=== PATIENT | female | born 1960 | race Caucasian/White ===

== ENCOUNTER → 2016-08-11 | Outpatient (CLI) | payer OTHER ==
[~2016-08-11] MED LIST: ALPRAZOLAM 0.50.5 M1 PO; ANASPAZ0.125 MG SL; ASACOL400 MG PO; BACTRIM DS TAB1 EACH PO; CEFDINIR300 MG PO; COLACE100 MG PO; DEXILANT60 MG PO; DIPHENOXYLATE/A1 TA1 PO; DURAGESIC1 EAC1 TD; EFFEXOR100 MG PO; EFFEXOR25 MG PO; ESTRACE0.5 MG PO; ESTRACE1 MG PO; FENTANYL 1100 MCG/HR TP; FENTANYL PATCH75 MCG TRANSDERM; FLAGYL500 MG PO; HYDROCODONE-AP1 EAC6 PO; HYOSCYAMINE0.125 MG PO; IRON325 PO; MACROBID 100 M100 M1 PO; ONDANSETRON HCL4 M2 PO; OXYCODONE-APAP1 EAC7 PO; PREDNISONE 10 M10 MG PO; PREDNISONE50 MG PO; PREVACID15 MG PO; PROTONIX40 M1 PO; PROVERA2.5 MG PO; [UNRECOGNIZED DRUG - REMARK]
== END ==
LOC: NUC 07:27
DX: M81.8 Other osteoporosis without current pathological fracture (principal); N91.2 Amenorrhea, unspecified

== ENCOUNTER 2018-05-08 18:28 | Inpatient (IN) | payer OTHER ==
[~2018-05-08] VITALS: Ht 170.2 cm; Wt 63.5 kg
[2018-05-08 18:52] VITALS: BP 116/77
[2018-05-08 19:32] LABS: HEMATOCRIT 31.6 % (37.0-47.0); HEMOGLOBIN 10.7 gm/dL (12.0-15.0); MCH 29.8 pg (26.0-34.0); MCHC 33.9 g/dL (28.0-37.0); RBC 3.58 mil/uL (4.20-5.00); RDW 13.1 % (10.5-14.5); WBC 6.2 thou/uL (4.0-11.0)
[2018-05-08 19:35] LABS: ANION GAP 10 mmol/L (7-16); BUN 25 mg/dL (7-18); CALCIUM 8.5 mg/dL (8.5-10.1); CHLORIDE 100 mmol/L (98-107); CO2 27 mmol/L (21-32); CREATININE 0.9 mg/dL (0.6-1.0); GLUCOSE 105 mg/dL (74-106); POTASSIUM 3.7 mmol/L (3.5-5.1); SODIUM 137 mmol/L (136-145)
[2018-05-08 19:43] LABS: ALBUMIN 2.7 g/dL (3.4-5.0); LIPASE 243 U/L (73-393); SGOT 26 U/L (15-37); SGPT 32 U/L (30-65); TOTAL BILIRUBIN 0.4 mg/dL (<0.1-1.0); TOTAL PROTEIN 7.2 g/dL (6.4-8.2); TROPONIN-I <0.06 ng/mL (<0.06)
[2018-05-08 21:10] LABS: URINE BILIRUBIN NEGATIVE (Negative); URINE BLOOD NEGATIVE (Negative); URINE CLARITY CLEAR; URINE COLOR YELLOW; URINE GLUCOSE-RANDOM* NEGATIVE (Negative); URINE KETONES NEGATIVE (Negative); URINE LEUKOCYTES-REFLEX NEGATIVE (Negative); URINE NITRITE-REFLEX NEGATIVE (Negative); URINE PROTEIN (DIPSTICK) NEGATIVE (Negative); URINE SPECIFIC GRAVITY 1.025 (1.005-1.035)
--- NOTE | 2018-05-08 22:00 | NUR ---
PT OFF THE UNIT TO CT SCAN.
[2018-05-08 23:11] LABS: INR 1.1; PROTIME 11.1 Seconds (9.3-11.4)
[2018-05-08 23:14] VITALS: BP 136/86
[2018-05-08] MEDS ORDERED: TYLENOL EXTRA500 MG PO (23:20)
[2018-05-08] MEDS ORDERED: LORAZEPAM 1 MG T1 M1 PO (23:53)
[2018-05-08] MEDS ORDERED: MS CONTIN15 MG PO ×3 (23:54→23:58)
[2018-05-08] MEDS ORDERED: ZYRTEC10 M5 PO (23:56)
[2018-05-08 23:59] VITALS: BP 120/91
[2018-05-09] VITALS (9 sets, daily range): BP systolic 98–121; BP diastolic 54–91
--- NOTE | 2018-05-09 05:05 | NUR ---
PT WAS ADMITTED TO THE UNIT FORM THE ER AT APPROX 0030 IN A FAIR CONDITION.ADMISSION HX,EDUCATION AND ASSESSMENT COMPLETED.PT HAS A R CHEST PICC THAT HAS NOT BEEN ACCESSED SINCE ADMISSION, LAC PUT IN THE ER.PT CONT WITH IVF AND IV ABX ORDERED.NEW ORDERS NOTED FROM DR SOUSA PER PT'S REQUEST SEE EMAR.PT NPO AT THIS TIME.MID ABD INCISION NOTED,RED AROUND THE INCISION SITE, WARM TO TOUCH.PT STATED THAT SHE GETS TPN WHILE AT HOME.PT RESTING ON HER BED AT THIS TIME.CALL LIGHT WITHIN REACH.
--- NOTE | 2018-05-09 16:12 | NUR ---
ASSESSMENT-PT LIVES IN A SPLIT LEVEL HOME WITH HER . PRIOR TO ADMISSION PT WAS INDEPENDENT OF ADLS AND AMBULATION. ABLE TO ASSIST AT HOME. PT SAYS SHE HAS NOT DRIVEN SINCE HER SURGERY WAS DONE. PT SAYS SHE HAS MEDICARE PART A, CARD COPIED AND FAXED TO [facility]. FOLLOWING TO ASSIST WITH ANY DC NEEDS. PT HAD AN ABD DRAIN PLACED TODAY.
--- NOTE | 2018-05-09 16:33 | NUR ---
WOUND CONSULT: PT. WAS SEEN TODAY BY DR. HOWARD AND MYSELF. PT. HAS A CLOSED [facility]. CT SHOWED A FLUID COLLECTED AND PT. WENT TO IR TODAY AND A JUAN DRAIN WAS PLACED. PT. REPORTS THAT SHE IS MORE COMFORTABLE SINCE PLACEMENT OF DRAIN. RECOMMENDATIONS: WILL RE-EVALUATE ABDOMEN TOMORROW FOR EFFECTIVNESS OF JUAN DRAIN. PT. AND STAFF NURSE WERE INSTRUCTED ON PLAN OF CARE.
--- NOTE | 2018-05-09 16:59 | EKG ---
[address] [place] [address] ELECTROCARDIOGRAM REPORT Name: MIRI MONTESDY Zachary Room #: 426-P [facility] IN M.R.#: [id number] ������������������ Admission: 05/08/18 ������������������ Attend Phys: Hitesh Hylton MD Discharge: ������������������ Date of : 56 Report #: [id number] ����������������������������������������������������������������� [id number] THIS REPORT FOR: //name// [facility] ED Test Date: 2018-05-08 Test Time: 19:41:59 Pat Name: INOCENCIO MONTES Department: Room: 42 Gender: F Manager Engine: TOMASA : 1960 Requested By: Precious Rodriguez Order Number: [id number] MD: Bassam Erickson Measurements Intervals [place] Rate: 96 P: 31 CO: 142 QRS: 16 QRSD: 103 T: 35 QT: 339 QTc: 429 Interpretive Statements Sinus rhythm Normal tracing Compared to ECG 10/04/2007 09:03:48 Sinus tachycardia no longer present Electronically Signed On 05-09-2018 16:59:46 CDT by Bassam Erickson [email or web address] ��������������������������������������������� <ELECTRONICALLY SIGNED> ���������������������������������������� By: Bassam Erickson MD, [facility] ��������������������������������������������� 05/09/18 1659 40 40 Bassam Erickson MD, FAC /EPI
--- NOTE | 2018-05-09 17:13 | NUR ---
ASSUMED CARE AT 0700, SHIFT ASSESSMENT DONE, NPO SINCE MIDNIGHT FOR ABSCESS DRAINAGE. WENT DOWN FOR IR GUIDED DRAIN PLACEMENT AT 1030. CAME BACK WITH A JUAN DRAIN ON THE RIGHT LOWER ABDOMEN, PRODUCING SEROSANGUINOUS DRAINAGE. REPORTED PAIN, PRN PAIN MEDS GIVEN. GETTING IV ANTIBITOICS. PATIENT HAS A SINGLE LUMEN CENTRAL LINE IN HER RIGHT CHEST, NO DRESSING OR MEDICATED PATCH ON IT. INTERVETION FOR CENTRAL LINE ADDED AND IV KIMBERLEY KUHN NOTIFIED. WILL CONTINUE TO ASSESS AND ASSIST WITH ADLs NEEDED.
--- NOTE | 2018-05-10 06:41 | NUR ---
PT'S BROUGHT HER TPN FROM HOME,DR SOUSA APPROVED OF IT, SENT DOWN TO PHARMACY FOR VERIFICATION.PT NOT ABLE START TPN BECAUSE THE EXTENSION CORD THEY USE AT HOME WAS MISSING.JUAN DRAIN STILL INTACT,HAD 40CC SEROSANGUINEOUS DRAINAGE OUT.IVF AND IV ABX ADMINISTERED.PT UP ADLIB TO THE BR.PT ABLE TO MAKE HER NEEDS KNOWN.CALL LIGHT WITHIN REACH.
--- NOTE | 2018-05-10 15:20 | HC ---
[facility] [place] [address] CONSULTATION Name: INOCENCIO MONTES Zachary Room #: 426-P ADM IN M.R.#: [id number] Admission: 05/08/18 ������������������ Attend Phys: Hitesh Hylton MD Discharge: ������������������ Date of : 56 Report #: [id number] THIS REPORT FOR: //name// CC: Nabil Hylton DATE OF SERVICE: 05/09/2018 INFECTIOUS DISEASES CONSULTATION REASON FOR CONSULTATION: I was asked to evaluate concerning surgical site infection. HISTORY OF PRESENT ILLNESS: The patient is a 57-year-old with recurrent small bowel obstruction and essential short bowel syndrome, on TPN since November. Was initially seen at [facility]. Transferred to care at [facility] for surgical intervention where she underwent laparotomy with resection of small bowel obstruction and repair of ventral hernia, this was completed on 04/21/2018. She was discharged on 04/29/2018. She has had abdominal distention. She has had moderate amount of erythema to her abdominal incision. On 05/08/2018, she developed fever over 100.5 degrees associated with some sweats. She has had persistent abdominal tenderness. Because of this, she was admitted to the Emergency Room where a CAT scan showed fluid collection in the abdominal wall. A drain was placed today with bloody fluid aspirated. She remains on TPN via right upper extremity tunneled catheter. Reports some improvement in her abdominal discomfort following drain placement. She has had no nausea or vomiting. There has been no diarrhea. She denies any dysuria, frequency, back or flank pain. No cough or sputum production. No pleuritic chest pain. REVIEW OF SYSTEMS: A 10-point review of systems is negative other than what is described above. ALLERGIES: CODEINE AND ZOLOFT. MEDICATIONS: As noted on her APR, which were reviewed, now on Zosyn and vancomycin. PAST MEDICAL HISTORY: Multiple small bowel obstructions, D and C, bunionectomy, both feet; vein stripping, left leg; rectal fissure repair, tonsillectomy, C. difficile colitis in 2007. FAMILY HISTORY: Noncontributory. SOCIAL HISTORY: Past smoker, no significant alcohol intake, no HIV risks. [facility] [address] [place] [address] CONSULTATION Name: INOCENCIO MONTES Room #: 426-[facility] IN M.R.#: [id number] Admission: 05/08/18 ������������������ Attend Phys: Hitesh Hylton MD Discharge: ������������������ Date of : 56 Report #: [id number] Lives at home with her , does not work outside the home. PHYSICAL EXAMINATION: VITAL SIGNS: Afebrile and hemodynamically stable. GENERAL: Alert and cooperative and pleasant, in no acute distress. HEENT: Eyes without scleral icterus. Mouth without mucositis. LUNGS: Clear. HEART: Regular without murmur, gallop or rub. Right chest tunneled catheter was unremarkable. ABDOMEN: Midline incision with surrounding erythema, induration. Right lower abdominal drain in place with bloody fluid in the bulb. No CVA tenderness. EXTREMITIES: Without cyanosis, clubbing or edema. NEUROLOGIC: Cranial nerves intact. Strength in upper and lower extremities was normal. Sensation in upper and lower extremities was normal. Mood normal. LABORATORY STUDIES: Reviewed. Microbiology reports reviewed. CT scan reviewed. IMPRESSION: 1. A 57-year-old, postoperative day #18 from laparotomy, small bowel resection and ventral hernia repair, now with surgical site infection of the abdominal wall. Would be concerned about involvement of the mesh. Unclear as to if this is a biologic mesh or not. Will need coverage for nosocomial organisms. 2. Small bowel resection with essential short bowel syndrome, the patient states has improved following this surgery and anticipates coming off TPN. 3. Malnutrition. RECOMMENDATION: We will continue broad antibiotic coverage pending culture results from both blood and abdominal wall fluid collection. Ultimately, the patient will return to [place] for followup surgical opinion. ��������������������������������������������� <ELECTRONICALLY SIGNED> ���������������������������������������� By: Nabil Hoffman MD ��������������������������������������������� 05/10/18 1520 1528 [id number] Nabil Hoffman MD /nt
--- NOTE | 2018-05-10 15:50 | NUR ---
PATIENT REPORTED MORPHINE 2 MG NOT CONTROLLING PAIN, DR SOUSA INFORMED. ORDER RECEIVED FOR 4MG Q2H PRN. WILL CONTINUE TO ASSESS PAIN AND INTERVENE NEEDED.
--- NOTE | 2018-05-10 16:40 | NUR ---
WOUND FOLLOW UP: PT. WAS SEEN TODAY BY DR. HOWARD AND MYSELF. PT. JAROD IS RESPONDING WELL TO THE CURRENT JUAN DRAIN. BUT, PT. IS COMPLAING OF A GREAT DEAL OF PAIN AT THIS TIME. STAFF NURSE WAS TALKED TO ABOUT THE PT. PAIN. RECOMMENDATIONS: CONTINUE WITH CURRENT PLAN OF CARE. PT. AND STAFF NURSE WERE INSTRUCTED ON PLAN OF CARE.
[2018-05-10 16:56] VITALS: BP 98/56
[2018-05-10 20:00] VITALS: BP 107/64
--- NOTE | 2018-05-11 04:07 | NUR ---
ASSUMED PT CARE 1899. PT ALERT AND ORIENTED. VSS. PTDENIES N/V AT THIS TIME. REPORTS PAIN, WELL MANAGED WITH MEDICATION, SEE EMAR. IV DRESSING C/D/I, NO SIGNS OF INFILTRATION. PT CALL LIGHT AND PERSONAL BELONINGS WITHIN REACH. WILL CONTINUE POC UNTIL EOS.
[2018-05-11 05:00] VITALS: BP 99/54
[2018-05-11 06:20] LABS: CREATININE 0.8 mg/dL (0.6-1.0); MAGNESIUM 1.9 mg/dL (1.8-2.4); PHOSPHORUS 2.7 mg/dL (2.5-4.9); POTASSIUM 3.6 mmol/L (3.5-5.1); TOTAL BILIRUBIN 0.3 mg/dL (<0.1-1.0); TOTAL PROTEIN 5.7 g/dL (6.4-8.2)
[2018-05-11 07:56] VITALS: BP 98/59
--- NOTE | 2018-05-11 16:24 | NUR ---
S/W PT AND HER IN THE ROOM AND SHE TELLS ME HER HH RN NITESH WAS ASKING IF WE COULD FAX PT'S LABS TO HER. LEFT MESSAGE FOR NITESH [phone] TO CALL ME. NEED TO VERIFY FAX NUMBER FOR NITESH [phone] BEFORE I CAN FAX ANY INFO. CASE DISCUSSED WITH DR Cora BUCKLEY AND HE SAYS PT MAY NEED IV ABX. LEFT THIS MESSAGE WITH NITESH ALSO.
--- NOTE | 2018-05-11 16:58 | NUR ---
S/W NITESH FROM [facility] AND VERIFIED THE FAX NUMBER AND THEY WOULD BE ABLE TO SUPPLY IV ZOSYN FOR PT WELL. 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 THEY CAN PROVIDE IV ABX & HANDLE TEACHING FOR IV STUFF ONLY. WILL NOT BE ABLE TO DO ANYTHING WITH PT'S DRAIN. PT/ SHOULD BE ABLE TO BE TAUGHT HOW TO MANAGE DRAIN AT HOME.
[2018-05-11 17:06] VITALS: BP 119/67
[2018-05-11 17:33] VITALS: BP 119/67
[2018-05-11 19:10] VITALS: BP 115/69
--- NOTE | 2018-05-11 19:43 | NUR ---
DISCHARGE ORDERS RECEIVED FROM . DR. BUCKLEY ORDERED IV ANTIBIOTIC TREATMENT FOR ONE WEEK. SW HAS SET FAXED INFO TO [facility]. CONSENT WAS SIGNED FOR PICC, PIV IN R FA WAS REMOVED BY VASC. TEAM. PT WILL BE SENT HOME WITH JUAN DRAIN.
--- NOTE | 2018-05-11 23:14 | NUR ---
LATE ENTRY, VASCULAR ACCESS CONSULTED FOR A PICC FOR HOME ABX, PT HAS A RT CHEST TUNNELED CL FOR TPN AT [facility]. RN CONTACTED DR BUCKLEY TO CONFIRM THAT ANOTHER CL ACCESS WAS DESIRED FOR THIS PT. HE CONFIRMED HE WANTED A PICC. PT CONSENTED AFTER DISCUSSION OF RISKS AND BENEFITS AND LINE WAS PLACED. PLEASE SEE INSERTION NI FOR DETAILS
[2018-05-12 09:33] VITALS: BP 119/67
--- NOTE | 2018-05-12 10:18 | HC ---
[facility] [place] [address] CONSULTATION Name: INOCENCIO MONTES Room #: 426-P [facility] IN M.R.#: [id number] Admission: 05/08/18 ������������������ Attend Phys: Hitesh Hylton MD Discharge: 05/11/18 ������������������ Date of : 56 Report #: [id number] THIS REPORT FOR: //name// CC: Nabil Hylton DATE OF SERVICE: 05/09/2018 CHIEF COMPLAINT: Hematoma to abdominal wall. HISTORY OF PRESENT ILLNESS: This is a 57-year-old white female patient, currently on TPN, who presented to the Emergency Department Room with fever. She has undergone exploratory laparotomy for small bowel obstruction on 04/21/2018 in [place], [place]. She was noted to have swelling and pain over the abdominal incision line and was admitted for further evaluation and treatment. She has been seen by interventional radiology and percutaneous drain has been placed. There is still some redness and pain. There are no reported open wounds at this time. ALLERGIES: CODEINE AND ZOLOFT. CURRENT MEDICATIONS: Include vancomycin, fentanyl, midazolam, loratadine, Zosyn, vancomycin, morphine. PAST MEDICAL HISTORY: Positive for multiple abdominal surgeries for small bowel obstructions, previous bunion surgery, vein stripping on her left leg. FAMILY HISTORY: Noncontributory. SOCIAL HISTORY: Negative for current alcohol or tobacco use. She is , accompanied by her . REVIEW OF SYSTEMS: CONSTITUTIONAL: The patient does complain of mild fever and chills. Denies recent weight loss. NEUROLOGICAL: The patient denies focal weakness, numbness or tingling. EYES: The patient denies visual changes, redness or drainage. ENT: The patient denies earache, nasal drainage or sore throat. CARDIOVASCULAR: The patient denies chest pain, palpitations or diaphoresis. PULMONARY: The patient denies cough or shortness of breath. GASTROINTESTINAL: The patient complains of abdominal discomfort, some mild nausea. Denies vomiting or diarrhea. ORTHOPEDIC: The patient denies pain or swelling in the extremities. Other systems in a 14-point review of systems are negative. [address] [address] CONSULTATION Name: INOCENCIO MONTES Room #: 426-P [facility] IN ..#: [id number] Admission: 05/08/18 ������������������ Attend Phys: Hitesh Hylton MD Discharge: 05/11/18 ������������������ Date of : 56 Report #: [id number] PHYSICAL EXAMINATION: VITAL SIGNS: At this time include pulse rate 94, respiratory rate 16, blood pressure 107/65, temperature 36.3. GENERAL: This is a chronically ill-appearing female patient who appears to be in minimal distress. HEAD: Normocephalic. Nose and throat clear. NECK: Supple. LUNGS: Clear. ABDOMEN: Soft. Bowel sounds are present. There is tenderness, swelling and mild erythema and ecchymosis to the midline. A midline surgical incision line is noted to be intact with no external drainage. There is a drain to the right of the midline. NEUROLOGIC: The patient is alert and oriented and appropriate. LABORATORY DATA: Sodium 137, potassium 3.7, chloride 100, CO2 of 27, BUN 25, creatinine 0.9, glucose of 105. Lactic acid 0.9. Albumin is low at 2.7. INR is 1.1. White blood cell count 6.2 with a hemoglobin of 10.7. CLINICAL IMPRESSION: 1. Hematoma versus seroma of the abdominal wall, now status post percutaneous drainage. 2. Possible abdominal wall cellulitis/wound infection. RECOMMENDATIONS: At this point in time, I think a simple dry dressing across the abdominal wall would be appropriate for absorption of any potential drainage and protection from friction. We can certainly watch this clinically. There is really no specific wound care intervention needed at this time. If this continues to drain and do well, then there will be no need for any sort of additional open procedure. I appreciate being asked to see her in consultation. ��������������������������������������������� <ELECTRONICALLY SIGNED> ���������������������������������������� By: Umer Barrett MD ��������������������������������������������� 05/12/18 1018 1421 0035 Umer Barrett MD /nt
--- NOTE | 2018-05-12 14:33 | NUR ---
PT WAS DISCHARGED LATE LAST SANCHEZ. WAS NOT NOTIFED THAT PT WOULD BE DISCHARGED YESTERDAY. FAXED ORDERS FOR IV ZOSYN, LABS TPN FORMULA DRAIN CARE, DC SUMMARY ID PROGRESS NOTE TO [facility] AND TO QUEENIE PORRAS IN [facility] INFO. [facility] WILL PROVIDE IV ABX, AND DRAIN CARE FOR PT PER JIMI. DR BUCKLEY INFORMED OF THE ABOVE. [facility] WAS TO START IV ABX ZEENAT TODAY.
== END 2018-05-11 21:00 | disposition home or self-care (01) | DRG 602 ==
LOC: ER 18:28 → EROBS 22:44 → 4E 22:44
PROVIDERS: Student in an Organized Health Care Education/Training Program; ADMIT Family Medicine
PROC: 0W9F30Z Drainage of Abdominal Wall with Drainage Device, Percutaneous Approach (ICD-10-PCS; 2018-05-09)
PROC: 3E0336Z Introduction of Nutritional Substance into Peripheral Vein, Percutaneous Approach (ICD-10-PCS; 2018-05-10)
PROC: 02HV33Z Insertion of Infusion Device into Superior Vena Cava, Percutaneous Approach (ICD-10-PCS; principal; 2018-05-11)
DX: L02.211 Cutaneous abscess of abdominal wall (principal); E43 Unspecified severe protein-calorie malnutrition; F41.9 Anxiety disorder, unspecified; L03.311 Cellulitis of abdominal wall; Z88.6 Allergy status to analgesic agent; Z87.891 Personal history of nicotine dependence; Z88.8 Allergy status to other drugs, medicaments and biological substances; Z68.21 Body mass index [BMI] 21.0-21.9, adult
CPT/HCPCS: 10084; 27000

== ENCOUNTER → 2018-06-16 | Outpatient (CLI) | payer OTHER ==
[~2018-06-16] MED LIST changes: +LORAZEPAM 1 MG T1 M1 PO; +MS CONTIN15 MG PO; +TYLENOL EXTRA500 MG PO; +ZYRTEC10 M5 PO
== END | disposition home or self-care (01) ==
LOC: SPEC 06:35
DX: Z45.2 Encounter for adjustment and management of vascular access device (principal)

== ENCOUNTER → 2020-02-26 | Outpatient (CLI) | payer OTHER | LOC: LAB 13:54 | PROVIDERS: ATTEND Nurse Practitioner | DX: Z20.828 Contact with and (suspected) exposure to other viral communicable diseases (principal) ==

== ENCOUNTER → 2020-12-24 | Outpatient (CLI) | payer OTHER | LOC: ULTRA 08:51 | PROVIDERS: ATTEND Family Medicine | DX: R14.0 Abdominal distension (gaseous) (principal); R10.9 Unspecified abdominal pain; Z78.0 Asymptomatic menopausal state; M54.50 Low back pain, unspecified ==